=== PATIENT | male | born 2000 | race Caucasian/White ===

== ENCOUNTER 2023-05-24 11:52 | Outpatient (CLI) | payer OTHER, SELFPAY ==
--- NOTE | ~2023-05-24 | CT_ITS ---
EXAMINATION: CT abdomen pelvis wo con DATE: 05/24/2023 12:08 INDICATION: Diarrhea. Melena. Low abdominal pain. TECHNIQUE: Computed tomography (CT) of the abdomen and pelvis was performed without intravenous contr ast. Automated exposure control and iterative reconstruction technique were employed. The dose-length product was 1748.48 mGy-cm. COMPARISON: CT abdomen and pelvis 01/01/2019 FINDINGS: The visualized portions of the lung bases are clear without pneumonia or pleural effusion. The heart size is normal. No pericardial effusion. There is a chronic 14 mm hypodense mass in the johnathan er, likely benign. The gallbladder is normal. There is mild splenomegaly. The pancreas, adrenal gland s, and kidneys are normal. There are no dilated loops of bowel. The appendix is normal. There are no pathologically enlarged lymph nodes. There is no free intraperitoneal fluid. There is moderate degene rative disc disease at L5-S1. IMPRESSION: 1. Chronic mild splenomegaly. Reviewed, dictated and finalized at location A.
== END 2023-05-24 11:53 | disposition home or self-care (01) ==
PROVIDERS: PCP Family Medicine; Visit Provider Physician Assistant
DX: R16.1 Splenomegaly, not elsewhere classified (principal); R10.32 Left lower quadrant pain; K92.1 Melena
CPT/HCPCS: 74176

== ENCOUNTER 2023-07-04 00:48 | Day surgery (SDC) | payer OTHER, SELFPAY ==
[2023-06-20 11:43] VITALS: BMI 36.3
--- NOTE | 2023-06-30 14:38 | SUR.PREOP ---
Patient called regarding upcoming procedure. No answer- Message left with arrival time and phone number for questions.
[2023-07-04 08:29] VITALS: BP 144/98; PULSE 103; RESP 17; TEMP 36.7; O2SAT 100; BMI 35.8
[2023-07-04] MEDS: LACTATED RINGERS 1,000 ML 150 ML IV CONT (08:42)
--- NOTE | 2023-07-04 09:00 | P.PNAN_ITS ---
Anes - Initial Pre Proc Eval Procedure: Operation Date: 07/04/23 09:45 Proposed Procedures p Colonoscopy - Tony Burk MD Date/Time: 07/04/23 09:00 Surgeon: Tony Burk MD Pre Op Diagnosis: melena, Diarrhea Patient Data Age: 22 Gender: M Height: 1.91 m Weight: 129.9 kg Last Vital Signs Temp 98.1 F 07/04/23 08:29 Pulse 103 H 07/04/23 08:29 Resp 17 07/04/23 08:29 BP 144/98 H 07/04/23 08:29 Pulse Ox 100 07/04/23 08:29 O2 Del Method Room Air 07/04/23 08:29 Allergies Allergy/AdvReac Type Severity Reaction Status Date / Time No Known Allergies Allergy Verified 07/04/23 08:28 Home Medications Medication Instructions Recorded Confirmed Type lisinopril 20 mg tablet 20 mg PO DAILY #30 tabs 03/22/23 07/04/23 Rx Patient hx anesthesia problems: none Family hx anesthesia problems: none Results Review: All pre-operative results and documents have been reviewed as part of the pre- operative evaluation. [facility] Past Medical History Medical History HTN (hypertension) CE (obstructive sleep apnea) Family History Family History Mother Diabetes mellitus Hypertension Social History Social History Smoking status: Never smoker Alcohol intake: current Drinks per week: 2 Substance use: never Substance use type: does not use Living arrangements: with family Occupation/Education: occupation Gender identity (if verbalized by the patient): Male Spiritual care concerns: No Anes - Eval Final PreProcedure Day of Procedure 07/04/23 09:00 Patient weight: obese Heart: regular rate and rhythm Lungs: clear to auscultation Airway: Mallampati scale class II Neurological: alert and oriented Last oral intake: >/= 8 hours ASA classification: II Emergent: no Anesthetic plan: proceed Anesthesia type and monitoring: general GIVS and standard monitoring Results Review: All pre-operative results and documents have been reviewed as part of the pre- operative evaluation. Informed Consent: The patient's anesthetic plan and its attendant risks and benefits were discussed with the patient/family/POA. Questions were solicited and answers provided to the satisfaction of the patient/family/POA.
--- NOTE | 2023-07-04 09:19 | PM.HPGS ---
History of Present Illness History of Present Illness Consent: Risks, benefits, and alternatives have been discussed and questions answered. Patient agrees to proceed with procedure. Chief complaint: melena, Diarrhea Narrative: Dean Alas is a 22 year old male with 1 week of diarrhea but also noted blood in stools, now resolved but never had colonoscopy Review of Systems Constitutional: Constitutional: Denies headache(s) and Denies weakness Eyes: Eyes: Denies blurry vision ENT: Reports Normal hearing present, Denies headache(s) and Denies neck pain Cardiovascular: Cardiovascular: Denies chest pain and Denies dyspnea Respiratory: Respiratory: Denies dyspnea Gastrointestinal: Gastrointestinal: Reports no additional gastrointestinal complaints Genitourinary: Genitourinary: Denies dysuria Musculoskeletal: Musculoskeletal: Denies neck pain Integumentary/Breasts: Skin/Breast: Denies dry skin Neurologic: Reports Normal hearing present, Denies headache(s) and Denies weakness Psychiatric: Psychiatric: Denies anxiety Endocrine: Endocrine: Denies change in body appearance Hematologic/Lymphatic: Hematologic/Lymphatic: Denies easy bleeding Allergic/Immunologic: Allergic/Immunologic: Denies urticaria PMF Past Medical History Medical History (Updated 07/04/23 @ 09:21 by Tony Bukr MD) BRBPR (bright red blood per rectum) Diarrhea HTN (hypertension) CE (obstructive sleep apnea) Family History Family History Mother Diabetes mellitus Hypertension Social History Social History Smoking status: Never smoker Alcohol intake: current Drinks per week: 2 Substance use: never Substance use type: does not use Living arrangements: with family Occupation/Education: occupation Gender identity (if verbalized by the patient): Male Spiritual care concerns: No Meds Home Medications and Allergies Home Medications Medication Instructions Recorded Confirmed Type lisinopril 20 mg tablet 20 mg PO DAILY #30 tabs 03/22/23 07/04/23 Rx Allergies Allergy/AdvReac Type Severity Reaction Status Date / Time No Known Allergies Allergy Verified 07/04/23 08:28 Vital Signs Vital Signs - 24 hr 07/04/23 08:29 Temperature 98.1 F Pulse Rate 103 H Respiratory Rate 17 Blood Pressure 144/98 H Pulse Oximetry 100 Oxygen Delivery Room Air Exam Const: General: comfortable and no acute distress HENMT: Face/Nose/Sinus: Normal nares present Eyes: General: appearance normal, both eyes and all related structures Neck: Neck: no JVD Resp: Auscultation: clear to auscultation bilaterally Cardio: Rate: regular rate Rhythm: regular rhythm GI: Inspection: non-distended GI Palp: Yes Soft to palpation Skin: General skin exam: normal color Neuro: General: gait normal Speech: normal speech Extrem: General: normal to inspection Psych: Mental Status: mental status grossly normal Assessment and Plan Assessment and plan (1) Diarrhea: Code(s): R19.7 - Diarrhea, unspecified Status: Acute Assessment and Plan: resolved but will do colonoscopy (2) BRBPR (bright red blood per rectum): Code(s): K62.5 - Hemorrhage of anus and rectum Status: Acute
[2023-07-04 09:37] VITALS: BP 145/118; PULSE 111; RESP 22; O2SAT 98
[2023-07-04 09:47] VITALS: BP 127/84; PULSE 101; RESP 18; O2SAT 99
[2023-07-04 09:57] VITALS: BP 143/93; PULSE 100; RESP 18; O2SAT 99
== END 2023-07-04 10:06 | disposition home or self-care (01) ==
PROVIDERS: PCP Family Medicine; Visit Provider Internal Medicine Gastroenterology
PROC: 0DJD8ZZ Inspection of Lower Intestinal Tract, Via Natural or Artificial Opening Endoscopic (ICD-10-PCS; CPT 45378; principal; 2023-07-04 09:45)
DX: K92.1 Melena (principal); K64.8 Other hemorrhoids; I10 Essential (primary) hypertension; G47.33 Obstructive sleep apnea (adult) (pediatric); E66.9 Obesity, unspecified; Z68.35 Body mass index [BMI] 35.0-35.9, adult
CPT/HCPCS: 45378; J2001; J2704; J7120

== ENCOUNTER 2023-08-31 19:49 | Observation (INO) | payer OTHER, SELFPAY ==
--- NOTE | ~2023-08-31 | CT_ITS ---
EXAMINATION: CT abdomen pelvis w con DATE: 09/01/2023 00:49 INDICATION: Right lower quadrant abdominal pain. TECHNIQUE: Computed tomography (CT) of the abdomen and pelvis was performed with 100 mL Omnipaque 350 intravenous contrast. Automated exposure control and iterative reconstruction technique were employe d. The dose-length product was 1786.37 mGy-cm. COMPARISON: CT abdomen and pelvis 05/24/2023 FINDINGS: The visualized portions of the lung bases demonstrate minimal atelectasis. No pleural effus ion. The heart size is normal. No pericardial effusion. There is a 2.0 cm cyst in the liver, stable f rom 01/01/2019. The gallbladder is normal. There is chronic mild splenomegaly. The pancreas, adrenal g lands, and kidneys are normal. The appendiceal diameter measures 7 mm. There is no fat stranding arou nd the appendix. There are no pathologically enlarged lymph nodes. There is trace ascites. There is m ild lumbar spondylosis. IMPRESSION: 1. Appendiceal diameter of 7 mm, which is indeterminate for appendicitis. 2. Chronic mild splenomegaly. Reviewed, dictated and finalized at location E. 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
[2023-08-31 20:23] VITALS: BP 146/78; PULSE 99; RESP 18; TEMP 36.7; O2SAT 99
[2023-08-31 21:16] LABS: Basophils Percent Auto 0.3 % (0.2-1.2); Eosinophils Absolute Auto 0.1 K/mm3 (0-0.3); Eosinophils Percent Auto 0.7 % (0-4.4); Hematocrit 48.6 % (42.0-52.0); Hemoglobin 16.9 g/dL (14.0-18.0); Immature Granulocyte Absolute 0.04 K/mm3 (0.00-0.031); Immature Granulocyte Percent A 0.3 % (0-0.5); Lymphocytes Absolute Auto 1.65 K/mm3 (0.9-3.2); Lymphocytes Percent Auto 13.2 % (18.3-44.2); Mean Corpuscular HGB Conc 34.8 g/dl (32-36); Mean Corpuscular Hemoglobin 34.8 pg (26-34); Mean Corpuscular Volume 100.2 fl (80-100); Mean Platelet Volume 11.6 fl (7.4-10.4); Monocytes Absolute Auto 0.7 K/mm3 (0.1-0.6); Monocytes Percent Auto 5.4 % (2.6-8.5); Neutrophils Percent Auto 80.1 % (45.5-73.1); Platelet Count Result 131 k/mm3 (150-375); Red Blood Count 4.85 M/mm3 (4.6-6.20); Red Cell Distribution Width 12.8 % (11.5-14.5); White Blood Count 12.5 K/mm3 (4.5-10.0)
[2023-08-31 21:25] LABS: Alanine Aminotransferase 66 U/L (6-50); Albumin Level 4.9 g/dL (3.5-5.1); Alkaline Phosphatase 78 U/L (38-126); Anion Gap 12 mmol/L (8-16); Aspartate Amino Transferase 38 U/L (17-59); Blood Urea Nitrogen 15 mg/dL (9-20); Calcium 9.4 mg/dL (8.4-10.2); Carbon Dioxide 23 mmol/L (22-30); Chloride 106 mmol/L (98-107); Estimated CRCL calculation 170 ml/min; Estimated Glomerular Filt Rate > 60; Glucose 110 mg/dL (65-110); Lipase 106 U/L (23-300); Potassium 3.9 mmol/L (3.4-5.0); Sodium 141 mmol/L (137-145)
[2023-08-31 21:32] LABS: Appearance Urine Clear (Clear); Bacteria Urine None Seen /hpf; Bilirubin Urine Negative (Negative); Blood Urine Negative (Negative); Color Urine Yellow (Yellow); Glucose Urine UA Negative (Negative); Ketones Urine Trace mg/dL (Negative); Leukocyte Esterase Ur Negative LEU/UL (Negative); Mucus Urine Present /lpf; Need Manual Microscopic Reviewed; Nitrate Urine Negative (Negative); Non Pathogenic Casts 0-2; Protein Urine Trace mg/dL (Negative); RBC Urine 0-2 /hpf (0-2); Specific Grav Ur 1.034 (1.001-1.035); Squamous Epithelial Cell Urine None seen /hpf (Few); WBC Urine 0-5 /hpf
[2023-08-31 21:34] LABS: Add Urine Microscopic? YES
[2023-08-31 23:44] VITALS: BP 143/85; PULSE 98; RESP 16; O2SAT 98
[2023-09-01] VITALS (23 sets, daily range): BP systolic 93–158; BP diastolic 40–90; PULSE 76–115; RESP 11–30; TEMP 36.1–37.1; O2SAT 90–100
--- NOTE | 2023-09-01 00:02 | ECG_ITS ---
Measurements Intervals [place] Rate: 79 P: 28 FL: 145 QRS: 67 QRSD: 106 T: 39 QT: 364 QTc: 418 Interpretive Statements SINUS RHYTHM NORMAL ECG NO PREVIOUS ECG AVAILABLE FOR COMPARISON Electronically Signed On 09-01-2023 6:31:20 [employer]PERVISOR [employer] by Syed Leonardo D.O.
[2023-09-01] MEDS: ONDANSETRON INJ 4 MG/2 ML VIAL IV PUSH (00:29)
[2023-09-01] MEDS: MORPHINE SULFATE (*CRX) 4 MG/ML INJ IV PUSH ×3 (00:31→08:32)
[2023-09-01] MEDS: SODIUM CHLORIDE 0.9% IV 1,000 ML 999 ML IV CONT ×2 (00:36→04:43)
[2023-09-01 00:57] LABS: Lactic Acid Reflex 1.1 mmol/L (0.7-2.0); Magnesium 2.1 mg/dL (1.6-2.3)
[2023-09-01 01:02] LABS: Prothrombin Time 13.5 Seconds (11.1-14.7)
[2023-09-01 01:03] LABS: Partial Thromboplastin Time 26.6 SECONDS (22.3-36.8)
--- NOTE | 2023-09-01 01:22 | PC.NURSE ---
Assumed care of pt. Report from FABIOLA Tracy. Pt resting quietly per cart.
--- NOTE | 2023-09-01 01:41 | ED.ABDPAIN ---
HPI - Abdominal Pain General Chief Complaint: Abdominal Pain Stated Complaint: abd pain Time Seen by Provider: 08/31/23 23:57 Source: patient and family Limitations: no limitations History of Present Illness HPI narrative: Patient is a 22-year-old male presents to the emergency department complaining of abdominal pain. Patient states around 5:15 p.m. he noticed some pain in the middle of his abdomen that has migrated to his right lower quadrant described as sharp, no history is pain in the past, rest makes it better, worse with movement, coughing, pulse in the road, denies radiation of the pain, has not tried anything for pain. Patient admits to associated nausea in addition to anorexia. Patient denies vomiting, diarrhea, bloody bowel movements, history kidney stones, dysuria, hematuria, chest pain, difficulty breathing, recent injuries, recent illness, fever. Related Data Allergies Allergy/AdvReac Type Severity Reaction Status Date / Time No Known Allergies Allergy Verified 08/31/23 23:45 Review of Systems Review of Systems: A 10 system review of systems was completed on the patient and is negative except for what is stated in the HPI. Nursing and ancillary documentation was reviewed. [facility] Past Medical History Medical History BRBPR (bright red blood per rectum) Diarrhea HTN (hypertension) CE (obstructive sleep apnea) Family History Family History Mother Diabetes mellitus Hypertension Social History Social History Smoking status: Never smoker Alcohol intake: current Drinks per week: 2 Substance use: never Substance use type: does not use Living arrangements: with family Occupation/Education: occupation Gender identity (if verbalized by the patient): Male Spiritual care concerns: No Comments At time of signature, I have reviewed and agree with nursing past medical, surgical, social and family history unless otherwise noted. Please see the nursing chart for further information. There is no relevant family history pertinent to the presenting complaint. Exam Narrative: CONST: No acute distress. Well nourished. HENMT: Head is normocephalic and atraumatic. Moist mucous membranes. No posterior oropharynx erythema. EYES: No conjunctival icterus, injection, or pallor. PERRL. NECK: No meningeal signs. RESP: Able to speak in full sentences. Normal respiratory effort. CTAB. CARDIO: Regular rate. Regular rhythm. 2+ DP and radial pulses bilaterally. GI: Nondistended. Soft. mild tenderness palpation at McBurney's point. No rebound or guarding or rigidity. Negative Gonzalez sign. Positive obturators sign and Rovsing sign. Negative psoas sign. No palpable masses or hernias. : No CVA tenderness to palpation. Bilateral testicles are descended and nontender and no swelling. SKIN: No rashes or lesions noted on exposed skin. NEURO: Oriented x3. Moves all extremities. EXTREM/MSK/BACK: No pedal edema. PSYCH: Normal affect. Course Vital Signs Vital signs: Vital Signs Temperature 98.0 F 08/31/23 20:23 Pulse Rate 99 08/31/23 20:23 Respiratory Rate 18 08/31/23 20:23 Blood Pressure 146/78 H 08/31/23 20:23 Pulse Oximetry 99 08/31/23 20:23 Oxygen Delivery Room Air 08/31/23 20:23 Temperature 98.0 F 08/31/23 20:23 Pulse Rate 79 09/01/23 04:04 Respiratory Rate 14 09/01/23 04:04 Blood Pressure 97/57 L 09/01/23 04:04 Pulse Oximetry 100 09/01/23 04:04 Oxygen Delivery Room Air 08/31/23 20:23 MDM - Abdominal Pain MDM Narrative Medical decision making narrative: Patient presents with the above complaint. Initial vitals are remarkable for no significant abnormalities. Physical examination as noted above. Plan discussed: laboratory analysis, EKG, CT of the abdomen pelvis with contrast
--- NOTE | 2023-09-01 02:45 | PC.NURSE ---
Pt reports that he is still having pain, but declines any additional pain meds at this time.
[2023-09-01 03:04] LABS: CRP < 0.5 mg/dL (<1.0)
--- NOTE | 2023-09-01 04:31 | PC.NURSE ---
Pt remains calm and cooperative with staff. Cardiac monitors remain in place. Pt willingly changed into paper scrubs. Father at bedside.
[2023-09-01] MEDS: SODIUM CHLORIDE 0.9% IV 1,000 ML 125 ML IV CONT (05:41)
[2023-09-01] MEDS: metroNIDAZOLE 500 MG/ISO 100ML 500 MG/100 ML BAG 100 MG IVPB (05:41)
--- NOTE | 2023-09-01 05:58 | ADMGEN ---
This patient, Dean Alas, was admitted to Medical Room 253-01. Patient/family oriented to hospital policies and general routines including ID bracelet, bed and alarms, visiting hours, pain management, procedures, bathroom and other care routines, personal items, smoking policy, room service/diet, and visiting hours. Information on how to activate the Rapid Response Team has been discussed. Patient/Family are encouraged to report perceived risks to care and to ask questions if they do not understand what they are told or what they should do.
[2023-09-01] MEDS: LACTATED RINGERS 1,000 ML 30 ML IV CONT ×2 (10:45→13:48)
--- NOTE | 2023-09-01 11:31 | WPDANESEPPF ---
Anes - Initial Pre Proc Eval Procedure: Operation Date: 09/01/23 12:00 Proposed Procedures p Laparoscopic Appendectomy - Cheng Hernandez MD Date/Time: 09/01/23 11:31 Surgeon: Nakia Hoover MD Pre Op Diagnosis: Appendicitis Patient Data Age: 22 Gender: M Height: 1.91 m Weight: 136.3 kg Last Vital Signs Temp 98.8 F 09/01/23 10:46 Pulse 82 09/01/23 10:46 Resp 14 09/01/23 10:46 BP 121/66 09/01/23 10:46 Pulse Ox 100 09/01/23 10:46 O2 Del Method Room Air 09/01/23 10:46 Allergies Allergy/AdvReac Type Severity Reaction Status Date / Time No Known Allergies Allergy Verified 08/31/23 23:45 Home Medications Medication Instructions Recorded Confirmed Type lisinopril 20 mg tablet 20 mg PO DAILY #30 tabs 03/22/23 09/01/23 Rx benzonatate 100 mg capsule 100 mg PO TID PRN cough #30 caps 08/15/23 09/01/23 Rx Laboratory Tests 08/31/23 09/01/23 09/01/23 21:06 00:37 00:37 WBC 12.5 H K/mm3 (4.5-10.0) RBC 4.85 M/mm3 (4.6-6.20) Hgb 16.9 g/dL (14.0-18.0) Hct 48.6 % (42.0-52.0) MCV 100.2 H fl (80-100) MCH 34.8 H pg (26-34) MCHC 34.8 g/dl (32-36) RDW 12.8 % (11.5-14.5) Plt Count 131 L k/mm3 (150-375) MPV 11.6 H fl (7.4-10.4) Immature Gran % (Auto) 0.3 % (0-0.5) Neut % (Auto) 80.1 H % (45.5-73.1) Lymph % (Auto) 13.2 L % (18.3-44.2) [place] % (Auto) 5.4 % (2.6-8.5) Eos % (Auto) 0.7 % (0-4.4) Baso % (Auto) 0.3 % (0.2-1.2) Lymph # (Auto) 1.65 K/mm3 (0.9-3.2) [place] # (Auto) 0.7 H K/mm3 (0.1-0.6) Eos # (Auto) 0.1 K/mm3 (0-0.3) Baso # (Auto) 0.0 K/mm3 (0.0-0.1) Abs Immat Gran (auto) 0.04 H K/mm3 (0.00-0.031) Absolute Neuts (auto) 10.0 H K/mm3 (1.3-6.7) Absolute Nucleated RBC 0.0 K/mm3 (0.0-0.012) Nucleated RBC % 0.0 % (0.0-0.2) % Immature Plt Fraction 10.0 % (0.9-11.2) PT 13.5 Seconds (11.1-14.7) INR 1.0 APTT 26.6 SECONDS (22.3-36.8) Sodium 141 mmol/L (137-145) Potassium 3.9 mmol/L (3.4-5.0) Chloride 106 mmol/L (98-107) Carbon Dioxide 23 mmol/L (22-30) Anion Gap 12 mmol/L (8-16) BUN 15 mg/dL (9-20) Creatinine 0.90 mg/dL (0.7-1.3) Estim Creat Clear Calc 170 ml/min Estimated GFR > 60 (59 - ) Glucose 110 mg/dL (65-110) Lactic Acid 1.1 mmol/L (0.7-2.0) Calcium 9.4 mg/dL (8.4-10.2) Magnesium 2.1 mg/dL (1.6-2.3) Total Bilirubin 1.0 mg/dL (0.2-1.3) AST 38 U/L (17-59) ALT 66 H U/L (6-50) Alkaline Phosphatase 78 U/L (38-126) C-Reactive Protein Cancelled < 0.5 mg/dL (<1.0) Total Protein 8.0 g/dL (6.3-8.2) Albumin 4.9 g/dL (3.5-5.1) Lipase 106 U/L (23-300) Urine Color Yellow (Yellow) Urine Appearance Clear (Clear) Urine pH 6.0 (5.0-9.0) Ur Specific [place] 1.034 (1.001-1.035) Urine Protein Trace mg/dL (Negative) Urine Glucose (UA) Negative mg/dL (Negative) Urine Ketones Trace H mg/dL (Negative) Ur Blood (Man) Negative (Negative) Urine Nitrate Negative (Negative) Urine Bilirubin Negative (Negative) Urine Urobilinogen 1.0 mg/dL (<2.0) Add Ur Microanalysis Reviewed Leukocyte Esterase Rfl Negative MARTA/UL (Negative) Urine RBC 0-2 /hpf (0-2) Urine WBC 0-5 /hpf Ur Squamous Epith Cells None seen /hpf (Few) Urine Bacteria None seen /hpf Urine Casts 0-2 Urine Mucus Present /lpf Blood Type O Negative A
--- NOTE | 2023-09-01 11:51 | PM.IMHP ---
H&P: HPI History of Present Illness Date/Time: 09/01/23 11:51 Chief Complaint: Right lower quadrant abdominal pain, leukocytosis, dilated appendix on CT scan Narrative: Patient is a 22-year-old white male who had the sudden onset of right lower quadrant abdominal pain about 12hours ago. No diarrhea. No other abdominal pain in the past. He does have a minor cough but has not had a flu type symptoms. No fever but white blood cell count of 12,500 which is elevated. He admits to having pain with movement and no nausea or vomiting. Never had any abdominal surgery. He did have a colonoscopy about a month ago due to some rectal bleeding and was found only to have some hemorrhoids. CT scan abdomen pelvis showed a mildly dilated Appendix at 7mm in diameter which is fluid filled. No abscess or perforation is noted. No periappendiceal inflammation is noted. The impression is borderline abnormal appearing appendix which could represent early acute appendicitis. No kidney stones were noted and patient has no history of kidney stones and no hematuria. Review of Systems Review of Systems: The remainder of the review of systems to include constitutional, HEENT, cardiovascular, respiratory, GI, , integumentary, musculoskeletal, endocrine, immunologic, hematologic, psychiatric, and neurologic are all negative except for which is mentioned above in the HPI. [facility] Past Medical History Medical History BRBPR (bright red blood per rectum) Diarrhea HTN (hypertension) CE (obstructive sleep apnea) Family History Family History Mother Diabetes mellitus Hypertension Social History Social History Smoking status: Never smoker Alcohol intake: never Drinks per week: 2 Substance use: never Substance use type: does not use Do You Feel Safe in your Home?: Yes Lack of Transportation: No Lack of Food: Never True Current Housing: I Have Housing Concerned About Future Housing: No Difficulty Paying Gas/Electric Bills: No Difficulty Paying for Meds: No Currently Unemployed: No Education: Associate Degree Difficulty w/ Childcare or Family Care: No Living arrangements: with family Occupation/Education: occupation Gender identity (if verbalized by the patient): Male Spiritual care concerns: No Meds Home Medications and Allergies Home Medications Medication Instructions Recorded Confirmed Type lisinopril 20 mg tablet 20 mg PO DAILY #30 tabs 03/22/23 09/01/23 Rx benzonatate 100 mg capsule 100 mg PO TID PRN cough #30 caps 08/15/23 09/01/23 Rx Allergies Allergy/AdvReac Type Severity Reaction Status Date / Time No Known Allergies Allergy Verified 08/31/23 23:45 Vital Signs Vital Signs - 24 hr 08/31/23 20:23 08/31/23 23:44 09/01/23 04:04 Temperature 36.7 C Pulse Rate 99 98 79 Respiratory Rate 18 16 14 Blood Pressure 146/78 H 143/85 H 97/57 L Pulse Oximetry 99 98 100 Oxygen Delivery Room Air 09/01/23 02:45 09/01/23 03:15 09/01/23 03:45 Temperature Pulse Rate 82 80 77 Respiratory Rate 16 16 14 Blood Pressure 93/42 L 103/40 L 121/48 L Pulse Oximetry 96 97 97 Oxygen Delivery 09/01/23 01:39 09/01/23 02:30 09/01/23 03:15 Temperature Pulse Rate 114 H 94 87 Respiratory Rate 12 11 L 13 Blood Pressure 100/50 L 106/56 L Pulse Oximetry 97 95 95 Oxygen Delivery 09/01/23 04:00 09/01/23 05:30 09/01/23 06:00 Temperature 36.7 C Pulse Rate 115 H 76 90 Respiratory Rate 30 H 16 18 Blood Pressure 150/87 H 158/64 H 137/79 Pulse Oximetry 90 97 100 Oxygen Delivery 09/01/23 06:11 09/01/23 08:27 09/01/23 08:20 Temperature 36.8 C Pulse Rate 98 Respiratory Rate 16 Blood Pressure 120/64 Pulse Oximetry 97 Oxygen Delivery Room Air Room Air 09/01/23 10:46 Temperature 37.1 C Pulse R
--- NOTE | 2023-09-01 12:03 | WPDHPUPDATE1 ---
History and Physical Update Update Date/Time: 09/01/23 12:03 History and Physical has been reviewed, including an updated exam of the patient. There are NO changes in the patient's condition. Risks, benefits, and alternatives have been discussed and questions answered. Patient agrees to proceed with procedure.
[2023-09-01] MEDS: KETOROLAC 30 MG/ML VIAL (*BKC) IV PUSH (13:17)
[2023-09-01] MEDS: LIDO 1%/EPINEPHRINE 1:100,000 20 ML VIAL 40 ML INFILTRATE (13:24)
--- NOTE | 2023-09-01 13:40 | W.PM.PROC2 ---
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 [place] [address] scan abdomen pelvis showed a dilated appendix is 7mm which was fluid filled. 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 He is being brought to the operating now for a semi-urgent laparoscopic appendectomy. Findings The appendix was pre dilate and there was some minimal to mild inflammation of the tip of the appendix. No perforation or periappendiceal abscess is seen. Description of Procedure After informed consent was obtained patient brought to the operating room placed supine position and general endotracheal anesthesia was administered. A Gillespie catheter was placed decompress the bladder. The abdomen was then prepped and draped usual sterile fashion. A time-out was then performed correctly identifying the patient as well as procedure to be performed. He was already on scheduled IV antibiotics. Under the abdomen left upper quadrant utilizing a 5mm Optiview port. Once inside the abdomen I insufflated to adequate pneumoperitoneum of 15mm of mercury of CO2. I then placed and 12mm periumbilical trocar port as well as 2 more 5mm trocar ports in the suprapubic region and the right lower quadrant. With laparoscopic instruments I then was able to hold the appendix and elevated so that I can make a defect through the mesoappendix with a [place] dissector. A 45mm Endo-THANH stapler was then used to divide the appendix flush with the cecum. A vascular reload to the 45mm Endo-THANH stapler was then used to divide the mesoappendix. The appendix was then pulled up into the 12mm trocar port and then the port was removed from the abdominal wall with the appendix within it. The appendix was sent to pathology for examination. I then irrigated the right lower quadrant the abdomen with sterile saline solution. Hemostasis was excellent. Both staple lines appeared to be intact. I then aspirated the fluid from the right lower quadrant the abdomen from the pelvis. Removed all the trocar ports under visualization all port sites appeared hemostatic. The abdomen was allowed to decompress. A 12mm periumbilical trocar port fascial defect was then closed utilizing 0 Vicryl suture placed in a figure-eight fashion. The skin edges in all the port sites were then approximated utilizing a running subcuticular 4 Monocryl suture. Incisions were then cleaned the skin glue sterile dressings were applied. The patient tolerated the procedure well no complications. All sponges, needles, and instrument counts were correct at the end procedure. EBL was _10__cc. The patient was awakened and taken to recovery in stable and satisfactory condition. Implants None Estimated Blood Loss 10 Urine Output 300 Drains No Packing No Pathology Yes (Appendix to pathology) Complications No immediate complications Condition Stable Disposition PACU [facility] Billing Surgery - Charge Forward: Surgery Billing
--- NOTE | 2023-09-01 14:01 | PM.DS ---
DS: Admitting Diagnosis Discharge Date September 01, 2023 Admitting Diagnosis Acute appendicitis DS: Discharge Diagnosis Discharge Diagnosis (1) Acute appendicitis: Qualifiers: Acute appendicitis type: with localized peritonitis Appendicitis abscess presence: without abscess Appendicitis gangrene presence: without gangrene Appendicitis perforation presence: without perforation Qualified Code(s): K35.30 - Acute appendicitis with localized peritonitis, without perforation or gangrene Code(s): K35.80 - Unspecified acute appendicitis Status: Acute Assessment and Plan: Patient was admitted to the hospital and underwent a laparoscopic appendectomy which was successful. DS: Summary Hospital Course Reason for hospitalization: Acute appendicitis. Hospital Course: Patient was seen evaluated emergency room and was found to have acute appendicitis. He was admitted to the surgical floor and started on IV antibiotics. He was given IV pain medications. Later in the afternoon he was then taken to the operating room where he underwent an uncomplicated laparoscopic appendectomy. Postoperatively his course in the recovery was uneventful and he was transferred back to surgical floor. Once he is back to surgical floor he was able to get up and ambulate to the bathroom and in the halls without difficulty. His pain was well controlled with oral pain medications. He was able to urinate spontaneously and his pain was well controlled with just oral pain medications. It was decided that later on same day of having had his laparoscopic appendectomy that he be discharged home in improved condition. Status at Discharge Functional status at discharge: independent ambulation Overall status at discharge: patient is back to baseline Time Spent with Patient Time attestation: Total time spent providing and/or coordinating discharge services: Time spent: Less than 30 minutes Exam Const: General: cooperative and healthy appearing HENMT: Head: normal to inspection Resp: Effort & Inspection: normal respiratory effort and able to speak in complete sentences Cardio: Rate: regular rate Rhythm: regular rhythm GI: Other: Abdomen is soft and nondistended. Port site incisions healing well without redness or drainage. Prior right lower quadrant pain has resolved. Neuro: General: oriented to person and oriented to time Speech: normal speech Extrem: General: normal to inspection Psych: Appearance: grossly normal and well kempt Mental Status: mental status grossly normal Speech and movement: Normal speech and movement present DS: Data Data Completed and Pending Pending studies at discharge: Pending at discharge 09/01/23 13:32 Surgical [PTH] Routine Labs on day of discharge: Labs from last 24 hours 09/01/23 09/01/23 08/31/23 00:37 00:37 21:06 WBC 12.5 H RBC 4.85 Hgb 16.9 Hct 48.6 MCV 100.2 H MCH 34.8 H MCHC 34.8 RDW 12.8 Plt Count 131 L MPV 11.6 H Immature Gran % (Auto) 0.3 Neut % (Auto) 80.1 H Lymph % (Auto) 13.2 L [place] % (Auto) 5.4 Eos % (Auto) 0.7 Baso % (Auto) 0.3 Lymph # (Auto) 1.65 [place] # (Auto) 0.7 H Eos # (Auto) 0.1 Baso # (Auto) 0.0 Abs Immat Gran (auto) 0.04 H Absolute Neuts (auto) 10.0 H Absolute Nucleated RBC 0.0 Nucleated RBC % 0.0 % Immature Plt Fraction 10.0 PT 13.5 INR 1.0 APTT 26.6 Sodium 141 Potassium 3.9 Chloride 106 Carbon Dioxide 23 Anion Gap 12 BUN 15 Creatinine 0.90 Estim Creat Clear Calc 170 Estimated GFR > 60 Glucose 110 Lactic Acid 1.1 Calcium 9.4 Magnesium 2.1 Total Bilirubin 1.0 AST 38 ALT 66 H Alkaline Phosphatase 78 C-Reactive Protein < 0.5 Cancelled Total Protein 8.0 Albumin 4.9 Lipase 106 Urine Color Yellow Urine Appearance Clear Urine pH 6.0 Ur Specific [place] 1.034 Urine Protein
--- NOTE | 2023-09-01 15:34 | PC.NURSE ---
patient returned from surgery, family at bedside
== END 2023-09-01 18:50 | disposition home or self-care (01) ==
LOC: ANHED 09-01 04:49 → ANH2MED 09-01 07:01
PROVIDERS: Admitting Provider Surgery; Emergency Provider Student in an Organized Health Care Education/Training Program; PCP Family Medicine; Visit Provider Surgery
PROC: 0DTJ4ZZ Resection of Appendix, Percutaneous Endoscopic Approach (ICD-10-PCS; CPT 44970; principal; 2023-09-01 12:00)
DX: K35.80 Unspecified acute appendicitis (principal); K36 Other appendicitis; R16.1 Splenomegaly, not elsewhere classified; I10 Essential (primary) hypertension; G47.33 Obstructive sleep apnea (adult) (pediatric); Z82.49 Family history of ischemic heart disease and other diseases of the circulatory system; F10.90 Alcohol use, unspecified, uncomplicated; Z79.899 Other long term (current) drug therapy
CPT/HCPCS: 44970; 36415; 74177; 80053; 81001; 83605; 83690; 83735; 85025; 85055; 85610; 85730; 86140; 86850; 86900; 86901; 88304; 93005; 96361; 96365; 96375; 96376; 99285; G0378; J0696; J1100; J1170; J1596; J1836; J1885; J2250; J2270; J2405; J2704; J3010; J7030; J7120; Q9967

== ENCOUNTER 2024-02-07 15:52 | Outpatient (CLI) | payer OTHER, SELFPAY ==
--- NOTE | ~2024-02-07 | XR_ITS ---
EXAMINATION: XR chest 2V Exam Date/Time: 02/07/2024 15:55 CDT HISTORY: cough and sob x 1 week; hx htn Comparison: None. RESULT: Lines, tubes, and devices: None. Lungs and pleura: Clear. Cardiomediastinal silhouette: Normal. Other: No acute osseous or upper abdominal finding. IMPRESSION: No acute cardiopulmonary process. Reviewed, dictated and finalized at location K.
== END 2024-02-07 15:53 | disposition home or self-care (01) ==
LOC: ANHIMG 15:52
PROVIDERS: PCP Family Medicine; Visit Provider Family Medicine
DX: R05.9 Cough, unspecified (principal); R06.02 Shortness of breath; I10 Essential (primary) hypertension
CPT/HCPCS: 71046

== ENCOUNTER 2024-10-21 15:58 | Outpatient (CLI) | payer BC, SELFPAY ==
--- NOTE | ~2024-10-21 | XR_ITS ---
EXAMINATION: XR chest 2V Exam Date/Time: 10/21/2024 16:07 CDT HISTORY: R05.9 - Cough, SOB, FEVER, WEAKNESS Comparison: 02/07/2024. RESULT: Lines, tubes, and devices: None. Lungs and pleura: Clear. Cardiomediastinal silhouette: Stable. Other: No acute osseous or upper abdominal finding. IMPRESSION: No acute cardiopulmonary process. Reviewed, dictated and finalized at location K.
--- OUTSIDE RECORDS SUMMARY | 2024-10-21 18:37 | XMS_ITS | Clinical Summary ---
Author Organization [facility] Address [address] [place] [address] Care Team Providers Care Air Breaker Operator Name Role Phone Tony Harvey MD Primary Care Provider [phone]- [phone] Allergies Active Allergy Reactions Criticality Noted Date Comments Penicillins Rash Reaction: Rash, Medications famotidine (PEPCID) 20 mg tablet 9 Active ondansetron ODT (ZOFRAN-ODT) 4 mg disintegrating tablet 9 Active lisinopriL (PRINIVIL,ZESTRIL) 10 mg tablet Take 1 tablet (10 mg total) by mouth daily 3 Active Active Problems Problem Noted Date Diagnosed Date Liver lesion 01/03/2019 Elevated transaminase level 01/03/2019 Fracture of middle phalanx of finger 06/11/2015 Family History Medical History Relation Name Comments Low Back Pain Father Family history of low back pain - (Added by TW Conv) Relation Name Status Comments Father Social History Tobacco Use Types Packs/Day Years Used Date Smoking Tobacco: Never Personal Safety Answer Date Recorded Getting School Help Needed Not on file 08/01 Sex and Gender Information Value Date Recorded Sex Assigned at Not on file 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 Gender Identity Not on file Sexual Orientation Not on file Obstetrics History Last Filed Vital Signs Vital Sign Reading Time Taken Comments Blood Pressure 124/76 03/18/2023 10:20 AM CDT Pulse 99 03/18/2023 10:20 AM CDT Temperature 37.4 C (99.3 F) 03/18/2023 10:20 AM CDT Respiratory Rate 16 03/18/2023 10:20 AM CDT Oxygen Saturation 98% 03/18/2023 10:20 AM CDT Inhaled Oxygen Concentration - - Weight 131.5 kg (290 lb) 03/18/2023 10:20 AM CDT Height 189.9 cm (6' 2.75 ) 03/18/2023 10:20 AM C DT Body Mass Index 36.49 03/18/2023 10:20 AM CDT Plan of Treatment Health Maintenance Due Date Last Done Comments Depression Screening 2001 Hepatitis C Screening 2001 Varicella Vaccines (1 of 2 - 13+ 2-dose series) 2014 HPV Vaccines (1 - Male 3-dose series) 2016 Meningococcal B Vaccine (1 o f 2 - Standard) 2017 Hepatitis B Screening 12/11/2019 Regular Well Visit/Exam 18-64 12/11/2019 Pneumococcal vaccine <65 (1 of 2 - PCV) 2020 Covid-19 Vaccine (3 - season) 2024, 11/13/2020 Influenza Vaccine (#1) 2024 05/26/2018, 2013 DTaP/Tdap/Td Vaccine (2 - Td or Tdap) 05/26/2028 Insurance [facility] Care Teams Air Breaker Operator Relationship Specialty Start Date End Date Tony Harvey MD PCP - General Pediatrics 01/01/19
--- OUTSIDE RECORDS SUMMARY | 2024-10-21 18:37 | XMS_ITS | Clinical Summary ---
Author Organization [facility] Address [address] [place] [address] Care Team Providers Care Coffee Host Name Role Phone Unknown, Provider Primary Care Provider Unavaila ble Source Comments [facility],non-owned Affiliates and Associated Physician Practices is amultiple site organization consisting of ambulatory clinics and hospital sitesin [place], [place], [place] and [place]. This disclosure is being madepursuant to the Care Everywhere program and may not contain all information available regarding this patient. Last updated 18.[facility] [employer] Allergies No known active allergies Medications * Be aware that medications may not be up to date on this document. Alwaysverify current medications with the patient. Medication Sig Dispensed Refills Start Date End Date Status methylPREDNISolone (MEDROL DOSEPAK) 4 MG tabletIndications:Acu te bronchitis, unspecified organism Take by mouth as directed Take as directed by mouth per package instructions. 21 tablet 05/14/2021 Active albuterol HFA (PROAIR HFA) 108 (90 Base) MCG/ACT inhalerIndications:Ac [place] bronchitis, unspecified organism Inhale 2 (two) puffs by mouth every 4 hours as needed 8.5 g 05/14/2021 Active Immunizations Name Administration Dates Next Due INFLUENZA VACCINE, QUADR. (F LUZONE; FLULAVAL; FLUARIX; AFLURIA QUADRIVALENT; 6MO+), 0.5 ML (IIV4) 05/26/2018 TDAP (7yrs+) 05/26/2018 Social History Tobacco Use Types Packs/Day Years Used Date Smoking Tobacco: Never Smokeless Tobacco: Never Sex and Gender Information Value Date Recorded Sex Assigned at Not on file Gender Identity Not on file Sexual Orientation Not on file Last Filed Vital Signs Vital Sign Reading Time Taken Comments Blood Pressure 150/90 05/14/2021 5:02 PM CDT Pulse 83 05/14/2021 5:02 PM CDT Temperature 36.8 C (98.2 F) 05/14/2021 5:02 PM CDT Respiratory Rate 18 05/14/2021 5:02 PM CDT Oxygen Saturation 98% 05/14/2021 5:02 PM CDT Inhaled Oxygen Concentration - - Weight 129.3 kg (285 lb) 05/14/2021 5:02 PM CDT Height 188 cm (6' 2 ) 05/14/2021 5:02 PM CDT Body Mass Index 36.59 05/14/2021 5:02 PM CDT Plan of Treatment Health Maintenance Due Date Last Done Comments HIV SCREENING 2016 HPV VACCINE (1 - Male 3-dose series) 2016 MENINGOCOCCAL (Group B) VACCINE (1 of 2 - Standard) 2017 HEPATITIS C SCREENING 12/06/2019 HEPATITIS B VACCINE (1 of 3 - 19+ 3-dose series) 2020 COVID-19 VACCINE (3 - 2023-2 5 season) 2024 2020, 11/13/2020 INFLUENZA VACCINE (#1) 2024 8, 08/13/2014 DEPRESSION SCREENING 08/14/2024 DTAP/TDAP/TD VACCINES (2 - T d or Tdap) 05/26/2028 05/26/2018 ZOSTER VACCINE (1 of 2) 12/11/2051 HIB VACCINE Aged Out No longer eligi ble based on patient's age to complete this topic MENINGOCOCCAL VACCINE Aged Out No clyde jasbir eligible based on patient's age to complete this topic PNEUMOCOCCAL VACCINE Aged Out No long er eligible based on patient's age to complete this topic Care Teams Coffee Host Relationship Specialty Start Date End Date Unknown, Provider PCP - General 05/14/21
--- OUTSIDE RECORDS SUMMARY | 2024-10-21 18:37 | XMS_ITS | Referral Summary ---
Author Organization [facility] Address [address] [place] [address] Care Team Providers Care Oil Distributor Tender Name Role Phone Unknown, Provider Primary Care Provider Unavaila ble Source Comments [facility],non-owned Affiliates and Associated Physician Practices is amultiple site organization consisting of ambulatory clinics and hospital sitesin [place], [place], [place] and [place]. This disclosure is being madepursuant to the Care Everywhere program and may not contain all information available regarding this patient. Last updated 18.[facility] Allergies No known active allergies Medications * [...] (PROAIR HFA) 108 (90 Base) MCG/ACT inhalerIndications:Ac [place] bronchitis, unspecified organism Inhale 2 (two) puffs [...] 05/14/2021 5:02 PM CDT Plan of Treatment Not on file Care Teams Oil Distributor Tender Relationship Specialty Start Date End Date Unknown, Provider PCP - General 05/14/21
--- OUTSIDE RECORDS SUMMARY | 2024-10-21 18:37 | XMS_ITS | Referral Summary ---
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 Gender Identity Not on file Sexual Orientation [...] 03/18/2023 10:20 AM CDT Plan of Treatment Not on file Insurance [facility] [facility]PPO Address: [address] [place] [phone] [facility]/PPO Address: [address] [place] [phone] [facility] H[facility]/PPO Address: [facility] [address] [place] [address] Care Teams Parks And Recreation Worker Relationship Specialty Start Date End Date Tony Harvey MD PCP - General Pediatrics 01/01/19
--- OUTSIDE RECORDS SUMMARY | 2024-10-21 18:37 | XMS_ITS | Patient Health Summary ---
Author Organization [facility] Address [address] [place] [address] Care Team Providers Care Network Security Officer Name Role Phone Unknown, Provider Primary Care Provider Unavaila ble Note from [facility],non-owned Affiliates and Associated Physician Practices is amultiple site organization consisting of ambulatory clinics and hospital sitesin [place], [place], [place] and [place]. This disclosure is being madepursuant to the Care Everywhere program and may not contain all information available regarding this patient. Last updated 18.[facility] Allergies No known active allergies* Penicillins(Unknown),Inactive Medications * Be aware that medications may not be up to date on this document. Alwaysverify current medications with the patient. * methylPREDNISolone (MEDROL DOSEPAK) 4 MG tablet(Started 05/14/2021) Take by mouth as directed Take as directed by mouth per package instructions. * albuterol HFA (PROAIR HFA) 108 (90 Base) MCG/ACT inhaler(Started 05/14/2021) Inhale 2 (two) puffs by mouth every 4 hours as needed Immunizations * INFLUENZA VACCINE, QUADR. (FLUZONE; FLULAVAL; FLUARIX; AFLURIA QUADRIVALENT; 6MO+), 0.5 ML (IIV4)(Given 05/26/2018) * TDAP (7yrs+)(Given 05/26/2018) Social History Tobacco Use Types Packs/Day Years [...] Mass Index 36.59 05/14/2021 5:02 PM CDT Procedures * CULTURE RESPIRATORY UPPER(Performed 09/10/2019) Performed for Tonsillitis * STREP A SCREEN - POINT OF CARE (AMB) STL(Performed 09/10/2019) Performed for Tonsillitis * STREP A SCREEN - POINT OF CARE (AMB) STL(Performed 03/29/2019) Performed for Acute pharyngitis, unspecified etiology * STREP A SCREEN - POINT OF CARE (AMB) STL(Performed 05/16/2018) Performed for Strep pharyngitis * STREP A SCREEN - POINT OF CARE (AMB) STL(Performed 07/13/2017) Performed for Acute streptococcal pharyngitis Results * CULTURE RESPIRATORY UPPER (09/10/2019 6:34 PM RAILROAD SWITCHMAN) [facility] Upper Respiratory Culture Final report [facility] ACCOUNT BILL Result 1 [facility] ACCOUNT BILL Comment:Routine respiratory aubrey Microbiology ENTIRE THROAT (SURFACE REGION OF NECK) / Unknown 09/10/2019 6:34 PM RAILROAD SWITCHMAN 09/11/2019 Narrative Resulting Agency Comment [facility] at: [facility] [address] [id number] Abd[facility]ir [facility] - MICROBIOLOG Y ORDERABLES [facility] ACCOUNT BILL [address] [place] [address] * STREP A SCREEN - POINT OF CARE (AMB) STL (09/10/2019 6:26 PM RAILROAD SWITCHMAN) Only the most recent of4 resultswithin the time period is included. Strep A Rapid POCT Negative Negative Strep A Internal Control Present Lot # [id number] Expiration Date 01 11 2021 Throat ENTIRE THROAT (SURFACE REGION OF NECK) / Unknown 09/10/2019 6:26 PM RAILROAD SWITCHMAN Abdulkadir Perez [facility] - POINT OF CA RE ORDERABLES Care Teams Network Security Officer Relationship Specialty Start Date End Date Unknown, Provider PCP - General 05/14/21
== END 2024-10-21 15:59 | disposition home or self-care (01) ==
PROVIDERS: PCP Family Medicine; Visit Provider Student in an Organized Health Care Education/Training Program
DX: R05.9 Cough, unspecified (principal)
CPT/HCPCS: 71046